=== PATIENT | female | born 1970 | race Caucasian/White ===

== ENCOUNTER → 2016-08-10 | Outpatient (CLI) | payer BC ==
[2016-08-10 19:27] VITALS: BP 107/66
== END ==
LOC: MHUC 18:56
PROVIDERS: ATTEND Physician Assistant Medical
DX: J32.9 Chronic sinusitis, unspecified (principal)
CPT/HCPCS: 99213

== ENCOUNTER → 2016-11-25 | Outpatient (CLI) | payer BC ==
[~2016-11-25] MED LIST: AZIT250T81 PO; BACL10TA PO; BCP; BENZ-22 PO; CEFD300C PO; DIAZ5TAB PO; GBPN100C PO; HYDR-33; NORE1TAB95 PO; PRED20TA PO; methylPREDNISolone 80 MG/ML (DEPO MEDROL) VIAL IM ONE
--- NOTE | 2016-11-26 08:35 | PAIN MANAGEMENT ---
Date of note: 11/25/2016 Procedure: Epidural steroid injection with fluoroscopic guidance Total fluoroscopic exposure time: 15 seconds This is a 46-year-old patient under the care of Dr. Alesha Helms. The patient was referred to anesthesia for the purpose of an epidural steroid injection secondary to lumbar disk bulge with radicular symptoms. She comes in complaining of pain bilateral in nature following the L5-S1 dermatome levels. She could have some involvement of S2, but with the involvement out of her hip down the side of her leg towards the back. We decided to proceed forward with an L5-S1 epidural steroid injection. Informed consent was obtained. The patient was taken to the operating room for fluoroscopic guidance for needle tip placement. She was placed in the left lateral decubitus position. Orders for procedure verified. Patient denies any bleeding tendencies. After informed consent obtained, the patient was positioned for the lumbar epidural steroid injection. The area was prepped and draped using aseptic technique. The skin and overlying tissues were localized using 3 mL of 1% Preservative-Free lidocaine using a 25-gauge 1.5-inch needle. A 20-gauge Tuohy needle was advanced, using "loss of resistance" technique, to the epidural space. No blood, cerebral spinal fluid, pain, or paresthesia noted on entry of the epidural space. A 1 mL solution of Depo-Medrol 80 mg was injected slowly without mass volume effect. The needle was then removed and the patient was turned to the sitting position where she remained for approximately 5 to 10 minutes. She was then able to stand and she was released with vital signs stable and faculties intact. She is asked to follow up with me via my cellphone in approximately 3 days. The patient states she understands these discharge instructions and I will follow her from there.
== END ==
LOC: PMC 13:38
PROVIDERS: ATTEND Family Medicine
DX: M51.16 Intervertebral disc disorders with radiculopathy, lumbar region (principal); G35 Multiple sclerosis; K59.09 Other constipation
CPT/HCPCS: 62323; J1040